=== PATIENT | male | born 1975 ===

== ENCOUNTER 2017-07-17 09:38 | Emergency (ER) | payer OTHER ==
[2017-07-17 09:55] VITALS: BP 107/70; PULSE 65; RESP 18; TEMP 98.4; O2SAT 100
[2017-07-17] MEDS ORDERED: Lidocaine 5% Patch TD STA (10:30)
--- NOTE | 2017-07-17 10:39 | C.PDOC ---
History Of Present Illness 42 y/o male presents to ED for evaluation of swelling, redness, and blisters on the right wrist and forearm upon waking up this morning. 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 Denies any known allergens. Denies pain, itching, or fever. Time Seen by Provider: 07/17/17 09:58 Chief Complaint (Nursing): Abnormal Skin Integrity History Per: Patient History/Exam Limitations: no limitations Onset/Duration Of Symptoms: Hrs Current Symptoms Are (Timing): Still Present Location Of Injury: Right: Arm Quality Of Symptoms: Swollen Additional History Per: Patient Past Medical History Reviewed: Historical Data, Nursing Documentation, Vital Signs Vital Signs: Last Vital Signs Temp 98.4 F 07/17/17 09:51 Pulse 65 07/17/17 09:51 Resp 18 07/17/17 09:51 BP 107/70 07/17/17 09:51 Pulse Ox 100 07/17/17 13:13 Family History: States: Unknown Family Hx - Social History Hx Alcohol Use: Yes Hx Substance Use: No - Immunization History Hx Tetanus Toxoid Vaccination: No Hx Influenza Vaccination: No Hx Pneumococcal Vaccination: No Review Of Systems Except As Marked, All Systems Reviewed And Found Negative. Constitutional: Negative for: Fever, Chills Skin: Positive for: Other (redness and blisters to right forearm) Physical Exam - Physical Exam Appears: Non-toxic, No Acute Distress Skin: Warm, Dry, Other (moderate swelling, erythema, and scattered fluid-filled boil to posterior and anterior aspects of right wrist and forearm in linear arrangements) Head: Normacephalic Eye(s): bilateral: Normal Inspection Oral Mucosa: Moist Tongue: Normal Appearing, No Swelling Lips: Normal Appearing, No Swelling Throat: Normal, No Erythema Cardiovascular: Rhythm Regular, No Murmur Respiratory: Normal Breath Sounds, No Rales, No Rhonchi, No Wheezing Extremity: Normal ROM, Capillary Refill (less than 2 seconds), No Deformity, Swelling (right wrist, forearm) Pulses: Right Radial: Normal Neurological/Psych: Oriented x3, Normal Speech ED Course And Treatment O2 Sat by Pulse Oximetry: 100 (RA) Pulse Ox Interpretation: Normal Progress Note: Pt was given Keflex, Prednisone, and Lidoderm patch. Pt is being discharged home with Rx of Prednisone and Keflex, and is instructed to follow up with PMD in 1-2 days for further evaluation. Disposition Counseled Patient/Family Regarding: Studies Performed, Diagnosis, Need For Followup, Rx Given - Disposition Referrals: [facility] [Outside] Disposition: HOME/ ROUTINE Disposition Time: 11:00 Condition: STABLE Additional Instructions: FOLLOW UP WITH YOUR doctor IN 1-2 DAYS USE MEDICATIONS DIRECTED RETURN TO EMERGENCY ROOM IF SYMPTOMS WORSEN SEGUIMIENTO CON HOBBS MDICO EN 1-2 [facility] USE MEDICAMENTOS SEGN LO INDICADO REGRESE AL LEANN DE EMERGENCIA SI LOS SNTOMAS EMPEORAN Prescriptions: Cephalexin [Keflex] 500 mg PO BID #14 capsule predniSONE [predniSONE Tab] 40 mg PO DAILY #8 tab Instructions: Contact Dermatitis (DC) Forms: [employer] (Georgian), Work Excuse Print Language: URUGUAYAN - POA Present On Arrival: None - Clinical Impression Clinical Impression: Contact dermatitis, Cellulitis of arm, right - Scribe Statement The provider has reviewed the documentation as recorded by the Prasanthibkarl Adame All medical record entries made by the Prasanthibkarl were at my direction and personally dictated by me. I have reviewed the chart and agree that the record accurately reflects my personal performance of the history, physical exam, medical decision making, and the department course for this patient. I have also personally directed, reviewed, and agree with the discharge instructions and disposition.
== END 2017-07-17 11:14 | disposition home or self-care (01) ==
LOC: C.ER 09:38
DX: L03.113 Cellulitis of right upper limb (principal); L25.9 Unspecified contact dermatitis, unspecified cause